=== PATIENT | female | born 1985 | race Caucasian/White ===

== ENCOUNTER 2020-05-04 09:08 | Outpatient (RCR) | payer BC, SELFPAY | END 2020-07-13 16:31 | disposition home or self-care (01) | LOC: ANHDMC 09:08 | PROVIDERS: Visit Provider Obstetrics & Gynecology | DX: O24.410 Gestational diabetes mellitus in pregnancy, diet controlled (principal); Z71.89 Other specified counseling; Z3A.00 Weeks of gestation of pregnancy not specified | CPT/HCPCS: G0108 ==

== ENCOUNTER 2020-05-11 09:52 | Observation (INO) | payer BC, MEDICAID, SELFPAY ==
[2020-05-11 10:15] VITALS: BMI 30.4
[2020-05-11 10:16] VITALS: BP 108/60; PULSE 102
[2020-05-11 10:31] VITALS: BP 104/55; PULSE 93
--- NOTE | 2020-05-11 11:12 | OBADM ---
This patient, Asia Wyman, admitted to the OB room OB Post 116 for observation. Patient/family oriented to hospital policies and general routines including ID bracelet, bed and alarms, visiting hours, pain management, procedures, bathroom and other care routines, personal items, smoking policy, room service/diet, and visiting hours. Patient/Family are encouraged to report perceived risks to care and to ask questions if they do not understand what they are told or what they should do.
--- NOTE | 2020-05-16 12:42 | PM.OBTRLD ---
OB - Triage/Final Diagnosis Visit Information Reason for evaluation: threatened labor
== END 2020-05-11 11:10 | disposition home or self-care (01) ==
PROVIDERS: Admitting Provider Obstetrics & Gynecology; PCP Nurse Practitioner Family; Visit Provider Obstetrics & Gynecology
DX: O47.9 False labor, unspecified (principal)
CPT/HCPCS: G0378; G0379

== ENCOUNTER 2020-06-15 11:49 | Observation (INO) | payer BC, MEDICAID, SELFPAY ==
[2020-06-15 12:23] LABS: Add Urine Microscopic? YES; Appearance Urine Cloudy (Clear); Bacteria Urine Trace /hpf; Bilirubin Urine Negative (Negative); Blood Urine Negative (Negative); Color Urine Yellow (Yellow); Glucose Urine UA Negative (Negative); Ketones Urine 2+ mg/dL (Negative); Leukocyte Esterase Ur 3+ LEU/UL (NEGATIVE); Mucus Urine Rare /lpf; Nitrate Urine Negative (Negative); Protein Urine 1+ mg/dL (Negative); Specific Grav Ur 1.029 (1.001-1.035); Squamous Epithelial Cell Urine Many /hpf (Few); Urobilinogen Urine Negative mg/dL (<2.0); WBC Urine 21-30 /hpf (0-3)
[2020-06-15 13:09] VITALS: BP 118/73; PULSE 77
[2020-06-15 13:16] VITALS: BP 95/54; PULSE 76
[2020-06-15 13:31] VITALS: BP 106/64; PULSE 70
--- NOTE | 2020-06-19 08:23 | PM.OBTRLD ---
OB - Triage/Final Diagnosis Evaluation Laboratory results: Laboratory Tests 06/15/20 12:11 Urine Color Yellow Urine Appearance Cloudy H Urine pH 5.0 Ur Specific [place] 1.029 Urine Protein 1+ H Urine Glucose (UA) Negative Urine Ketones 2+ H Ur Blood (Man) Negative Urine Nitrate Negative Urine Bilirubin Negative Urine Urobilinogen Negative Ur Leukocyte Esterase 3+ H Urine RBC 3-5 H Urine WBC 21-30 H Ur Squamous Epith Cells Many H Urine Bacteria Trace Urine Mucus Rare Final Diagnosis (1) Abdominal pain affecting : Code(s): O26.899 - Other specified related conditions, unspecified trimester; R10.9 - Unspecified abdominal pain Status: Acute
== END 2020-06-15 14:42 | disposition home or self-care (01) ==
PROVIDERS: Admitting Provider Obstetrics & Gynecology; PCP Nurse Practitioner Family; Visit Provider Obstetrics & Gynecology
DX: O26.899 Other specified pregnancy related conditions, unspecified trimester (principal); R10.9 Unspecified abdominal pain; Z3A.00 Weeks of gestation of pregnancy not specified
CPT/HCPCS: 81001; 87086; 87088; G0378; G0379

== ENCOUNTER 2020-06-18 10:33 | Observation (INO) | payer BC, MEDICAID, SELFPAY ==
--- NOTE | ~2020-06-18 | US_ITS ---
EXAMINATION: US OB BPP wo non-stress DATE: 06/18/2020 13:36 CDT INDICATION: Gestational diabetes TECHNIQUE: Real-time transabdominal obstetric ultrasound. FINDINGS: No prior studies for comparison. There is a single living fetus in vertex presentation. The placenta is anterior without placenta pre via. cardiac activity and movement is noted with a heart rate of 145 beats per minute. Biophysical profile: breathin of 2 movement: 2 of 2 tone: 2 of 2 Amniotic flud pocket: 2 of 2 Total score: 6 of 8 IMPRESSION: 1. Single living intrauterine in vertex presentation. 2: Total biophysical profile score of 6/8. Reviewed, dictated and finalized at location B.
[2020-06-18] MEDS: TERBUTALINE SULFATE 1 MG/ML VIAL (11:38)
--- NOTE | 2020-06-18 13:00 | OBADM ---
This patient, Asia Wyman, admitted to the OB room Labor/Delivery/Recovery 118 for observation. Patient/family oriented to hospital policies and general routines including ID bracelet, bed and alarms, visiting hours, pain management, procedures, bathroom and other care routines, personal items, smoking policy, room service/diet, and visiting hours. Patient/Family are encouraged to report perceived risks to care and to ask questions if they do not understand what they are told or what they should do.
[2020-06-18 13:46] VITALS: PULSE 106; O2SAT 100
[2020-06-18 13:49] VITALS: BP 107/67; PULSE 88
[2020-06-18 13:56] VITALS: PULSE 89; O2SAT 100
[2020-06-18 14:01] VITALS: BP 120/69; PULSE 104; PULSE 93; O2SAT 100
[2020-06-18 14:06] VITALS: PULSE 103; O2SAT 100
--- NOTE | 2020-06-23 08:57 | PM.OBTRLD ---
OB - Triage/Final Diagnosis Visit Information Reason for evaluation: threatened labor
== END 2020-06-18 14:10 | disposition home or self-care (01) ==
PROVIDERS: Admitting Provider Obstetrics & Gynecology; PCP Nurse Practitioner Family; Visit Provider Obstetrics & Gynecology
DX: O47.9 False labor, unspecified (principal); Z3A.00 Weeks of gestation of pregnancy not specified
CPT/HCPCS: 76819; 96372; G0378; G0379; J3105

== ENCOUNTER 2020-06-28 09:06 | Outpatient (RCR) | payer BC, MEDICAID, SELFPAY ==
[2020-05-21 15:40] VITALS: BP 106/65; PULSE 82
[2020-05-24 15:18] VITALS: PULSE 82
[2020-05-28 14:59] VITALS: BP 113/73; PULSE 80
[2020-05-31 13:55] VITALS: BP 108/69; PULSE 82
[2020-06-04 15:19] VITALS: BP 114/72; PULSE 89
[2020-06-11 13:28] VITALS: BP 111/64; PULSE 70
[2020-06-14 14:56] VITALS: BP 116/66; PULSE 78
--- NOTE | 2020-06-18 11:30 | PC.NURSE ---
called, informed pt came in for her NST and was c/o mulu. Pt is having contractions every 1-4 minutes,crying with back pain and was unable to tolerate a SVE. Pt states she has never been able to tolerate exams. Orders received to PO hydrate and give up to 3 doses of terbutaline as needed for contractions.
[2020-06-21 11:01] VITALS: BP 122/81; PULSE 83
[2020-06-25 10:46] VITALS: BP 112/70; PULSE 77
--- NOTE | ~2020-06-28 | US_ITS ---
EXAMINATION: US OB BPP wo non-stress DATE: 06/25/2020 10:18 INDICATION: Maternal gestational diabetes during third trimester. Assess biophysical profile. TECHNIQUE: Real-time ultrasound of the pelvis was performed. The interpreting radiologist was not pre sent for the study. COMPARISON: None. FINDINGS: There is a single living fetus in vertex presentation. The placenta is anterior. heart rate is 135 beats per minute (bpm). The amniotic fluid index is subjectively normal. Biophysical profile performed by the technologist: breathing (30 sec sustained breathing in 30 minutes): 2 out of 2 movement (3 gross body movements in 30 minutes: 2 out of 2 tone (one episode of ecnmvre-ywcrxkhlp-ttwcwxi limb movement): 2 out of 2 Amniotic fluid pocket (2 cm): 2 out of 2 Total score: 8 out of 8 IMPRESSION: 1. Single living fetus in vertex presentation with heart rate of 135 bpm. 2. Biophysical profile 8 out of 8. Reviewed, dictated and finalized at location B. IMPRESSION: 1. Single living fetus in vertex presentation with heart rate of 135 bpm . 2. Biophysical profile 8 out of 8.
--- NOTE | ~2020-06-28 | US_ITS ---
EXAMINATION: US OB BPP wo non-stress DATE: 05/28/2020 15:20 INDICATION: Gestational diabetes. Third trimester. TECHNIQUE: Real-time pelvic ultrasound was performed. COMPARISON: Ultrasound 05/21/2020 FINDINGS: There is a single living fetus in vertex presentation. The placenta is anterior. heart rate is 152 beats per minute (bpm). Biophysical profile performed by the technologist: breathing (30 sec sustained breathing in 30 minutes): 2 out of 2 movement (3 gross body movements in 30 minutes): 2 out of 2 tone (one episode of odibdxd-jxxbhwook-reopnvi limb movement): 2 out of 2 Amniotic fluid pocket (2 cm): 2 out of 2 Total score: 8 out of 8 IMPRESSION: 1. Single living fetus in vertex presentation. 2. Biophysical profile 8 out of 8. Reviewed, dictated and finalized at location A.
--- NOTE | ~2020-06-28 | US_ITS ---
EXAMINATION: US OB follow up w BPP DATE: 06/11/2020 14:23 INDICATION: Estimated weight and obtain biophysical profile. Third trimester . TECHNIQUE: Real-time pelvic ultrasound was performed. The interpreting radiologist was not present fo r the study. COMPARISON: None. FINDINGS: There is a single living fetus in vertex presentation. The placenta is anterior. heart rate is 144 beats per minute (bpm). The following biometric data were obtained: Head circumference: 31.9 cm -> 35 weeks 6 days Abdominal circumference: 31.8 cm -> 35 weeks 5 days Femur length: 6.9 cm -> 35 weeks 3 days These measurements are concordant. Head circumference to abdominal circumference ratio: 1.00 (normal range 0.93-1.09). Estimated weight: 2732 g (+/-) 410 g, 6lbs 0oz (+/-) 14oz Biophysical profile performed by the technologist: breathing (30 sec sustained breathing in 30 minutes): 2 out of 2 movement (3 gross body movements in 30 minutes): 2 out of 2 tone (one episode of bqyymoe-uhlrjqgxp-khwqgdi limb movement): 2 out of 2 Amniotic fluid pocket (2 cm): 2 out of 2 Total score: 8 out of 8 IMPRESSION: 1. Single living fetus in vertex presentation. 2. Biophysical profile 8 out of 8. 3. Estimated weight is 55th percentile by Hadlock criteria when 07/13/2020 is used as the estim ated date of delivery (VIÁN). Please correlate with clinical information or earlier ultrasounds for mo st accurate IVÁN. Reviewed, dictated and finalized at location B. IMPRESSION: 1. Single living fetus in vertex presentation. 2. Biophysical profile 8 out of 8. 3. Estimated weight is 55th percentile by Hadlock criteria when 0 is used as the estimated date of delivery (IVÁN). Please correlate with clinic al information or earlier ultrasounds for most accurate IVÁN.
--- NOTE | ~2020-06-28 | US_ITS ---
EXAMINATION: US OB follow up w BPP DATE: 05/21/2020 15:29 INDICATION: Gestational diabetes TECHNIQUE: Real-time ultrasound of the pelvis was performed. The interpreting radiologist was not pre sent for the study. COMPARISON: None. FINDINGS: There is a single living fetus in vertex presentation. The placenta is anterior. cardiac activ ity and movement are noted. heart rate is 1:30 beats per minute (bpm). The amniotic fluid index is 17.3 cm, which is normal. The following biometric data were obtained: BPD: 8.3 cm corresponds to gestational age 33 weeks 3 day(s). Head circumference: 30.3 cm corresponds to gestational age 33 weeks 5 day(s). Abdominal circumference: 29.9 cm corresponds to gestational age 33 weeks 6 day(s). Femur length: 6.3 cm corresponds to gestational age 32 weeks 3 day(s). Head circumference to abdominal circumference ratio: 1.01 (mean 0.95-1.11). Estimated weight: 2190 g plus or minus 328 g. Biophysical profile performed by the technologist: breathing (30 sec sustained breathing in 30 minutes): 2 out of 2 movement (3 gross body movements in 30 minutes: 2 out of 2 tone (one episode of fdpmrpp-keygaobsb-dznkhgo limb movement): 2 out of 2 Amniotic fluid pocket (2 cm): 2 out of 2 Total score: 8 out of 8 IMPRESSION: 1. Single living fetus in vertex presentation with heart rate of 130 bpm. 2. Normal placenta. 3. Biophysical profile 8 out of 8. 4. Gestational age by ultrasound of 33 weeks 3 day(s) with ultrasound estimated date of delivery (IVÁN ) of 07/06/2020. Reviewed, dictated and finalized at location A. IMPRESSION: 1. Single living fetus in vertex presentation with heart rate of 130 bpm. 2. Normal placenta. 3. Biophysical profile 8 out of 8. 4. Gestational age by ultrasound of 33 weeks 3 day(s) with ultrasound estimated date of delivery (IVÁN) of 07/06/2020.
--- NOTE | ~2020-06-28 | US_ITS ---
EXAMINATION: US OB BPP wo non-stress EXAM DATE: 06/04/2020 15:41 INDICATION: Gestational diabetes. 3rd trimester. TECHNIQUE: Pelvic obstetrical transabdominal sonogram was performed by a technologist. There are mu ltiple grayscale and Doppler images available for interpretation. There are no earlier studies of th is gestation for comparison. FINDINGS: There is a single fetus identified in vertex presentation with a heart rate of 137 beats pe r minute. The placenta is located in the anterior position. There is no sonographic evidence of retr oplacental hemorrhage identified. BIOPHYSICAL PROFILE (performed by the technologist) breathing (30 sec sustained breathing in 30 minutes): 2 out of 2 movement (3 gross body movements in 30 minutes): 2 out of 2 tone (one episode of ftaruhz-pwcimvzsk-fpsyxoy limb movement): 2 out of 2 Amniotic fluid pocket (2 cm): 2 out of 2 Total score: 8 out of 8 IMPRESSION: 1. Single fetus with heart rate of 137 bpm. 2. Normal biophysical profile score of 8 out of 8. Reviewed, dictated and finalized at location B.
[2020-06-28 09:37] VITALS: BP 108/75; PULSE 71
== END 2020-07-02 11:25 | disposition home or self-care (01) ==
LOC: ANHOBOP 09:06
PROVIDERS: PCP Nurse Practitioner Family; Visit Provider Obstetrics & Gynecology
DX: O24.419 Gestational diabetes mellitus in pregnancy, unspecified control (principal); Z3A.32 32 weeks gestation of pregnancy; Z3A.33 33 weeks gestation of pregnancy; Z3A.34 34 weeks gestation of pregnancy; Z3A.35 35 weeks gestation of pregnancy; Z3A.36 36 weeks gestation of pregnancy; Z3A.37 37 weeks gestation of pregnancy
CPT/HCPCS: 59025; 76816; 76819; A9270; J2274; J3010; J3105; J7121

== ENCOUNTER 2020-06-28 19:05 | Observation (INO) | payer BC, MEDICAID, SELFPAY ==
[2020-06-28 19:28] VITALS: BP 121/89; PULSE 84
[2020-06-28 19:32] VITALS: BP 122/78; PULSE 82
[2020-06-28 19:40] VITALS: BP 117/79; PULSE 74
--- NOTE | 2020-07-02 16:43 | PM.OBTRLD ---
OB - Triage/Final Diagnosis Visit Information Reason for evaluation: threatened labor
--- NOTE | 2020-07-02 16:44 | PM.OBPNVD ---
OB - PN: Subj Subjective Date/time seen: 07/02/20 16:44 Feeling poorly today and mild anemia persists. Discussed and will proceed with 2 units packed red blood cells and cancel today discharge. OB - PN A/P Time Spent With Patient Time: Total time spent is greater than 50% in coordination of care (as documented) at patient's floor/unit and/or counseling patient:
== END 2020-06-28 20:05 | disposition home or self-care (01) ==
PROVIDERS: Admitting Provider Obstetrics & Gynecology; PCP Nurse Practitioner Family; Visit Provider Obstetrics & Gynecology
DX: O99.013 Anemia complicating pregnancy, third trimester (principal); D64.9 Anemia, unspecified; O47.03 False labor before 37 completed weeks of gestation, third trimester; Z3A.37 37 weeks gestation of pregnancy
CPT/HCPCS: G0378; G0379

== ENCOUNTER 2020-06-30 05:28 | Inpatient (IN) | payer BC, MEDICAID, SELFPAY ==
[2020-06-30] VITALS (59 sets, daily range): BP systolic 81–132; BP diastolic 40–93; PULSE 60–104; RESP 16–20; TEMP 36.4–37.1; O2SAT 75–100; BMI 30.8
--- NOTE | ~2020-06-30 | XR_ITS ---
EXAMINATION: XR cystogram DATE: 06/30/2020 11:55 INDICATION: Hematuria post section TECHNIQUE: Water-soluble contrast was gravity-infused through the patient's Ibanez catheter. Multiple fluoroscopic images were obtained. Fluoroscopy exposure time was 1.0 minutes. The DAP for this proced ure was 18.185 Gycm2. COMPARISON: None. FINDINGS: Bladder contour is normal. No contrast extravasation is identified from the bladder. IMPRESSION: 1. No evidence of contrast extravasation from the bladder. Reviewed, dictated and finalized at location A.
[2020-06-30 06:40] LABS: Basophils Percent Auto 0.5 % (0.2-1.2); Eosinophils Absolute Auto 0.1 K/mm3 (0-0.3); Eosinophils Percent Auto 0.9 % (0-4.4); Hemoglobin 11.7 g/dL (12.0-15.0); Immature Granulocyte Absolute 0.02 K/mm3 (0.00-0.031); Immature Granulocyte Percent A 0.4 % (0-0.5); Lymphocytes Absolute Auto 1.13 K/mm3 (0.9-3.2); Lymphocytes Percent Auto 19.9 % (18.3-44.2); Mean Corpuscular HGB Conc 34.4 g/dl (32-36); Mean Corpuscular Hemoglobin 30.9 pg (26-34); Mean Corpuscular Volume 89.7 fl (80-100); Mean Platelet Volume 11.3 fl (7.4-10.4); Monocytes Absolute Auto 0.4 K/mm3 (0.1-0.6); Monocytes Percent Auto 7.6 % (2.6-8.5); Neutrophils Percent Auto 70.7 % (45.5-73.1); Platelet Count Result 146 k/mm3 (150-375); Red Blood Count 3.79 M/mm3 (4.2-5.4); Red Cell Distribution Width 13.7 % (11.5-14.5); White Blood Count 5.7 K/mm3 (4.5-10.0)
[2020-06-30] MEDS: LACTATED RINGERS 1,000 ML 125 ML IV CONT ×2 (06:45→08:30)
--- NOTE | 2020-06-30 06:45 | P.PNAN_ITS ---
Anes - Eval Pre Procedure Procedure: Operation Date: 07/06/20 07:30 Proposed Procedures p Repeat Section with Bilateral Tubal Ligation - Mark Brito MD Date/Time: 06/30/20 06:45 Surgeon: Mark Brito Preop Diagnosis: previous c section Pre Op Diagnosis: SROM Patient Data Age: 34 Gender: F Height: Weight: Last Vital Signs Pulse 83 06/30/20 06:00 BP 118/81 06/30/20 06:00 Allergies Allergy/AdvReac Type Severity Reaction Status Date / Time No Known Allergies Allergy Verified 06/14/20 14:34 Home Medications Medication Instructions Recorded Confirmed Type PNV cmb#95-ferrous fumarate-FA 1 tablet PO DAILY 05/21/20 06/21/20 History [] nifedipine [Procardia] 10 mg PO Q6H PRN 05/21/20 06/21/20 History venlafaxine [Effexor XR] 75 mg PO DAILY 05/21/20 06/21/20 History glyburide 5 mg PO HS 06/14/20 06/21/20 History Laboratory Tests 06/30/20 06/30/20 06:35 06:35 WBC 5.7 K/mm3 K/mm3 (4.5-10.0) RBC 3.79 M/mm3 L M/mm3 (4.2-5.4) Hgb 11.7 g/dL L g/dL (12.0-15.0) Hct 34.0 % L % (37.0-47.0) MCV 89.7 fl fl (80-100) MCH 30.9 pg pg (26-34) MCHC 34.4 g/dl g/dl (32-36) RDW 13.7 % % (11.5-14.5) Plt Count 146 k/mm3 L k/mm3 (150-375) MPV 11.3 fl H fl (7.4-10.4) Immature Gran % (Auto) 0.4 % % (0-0.5) Neut % (Auto) 70.7 % % (45.5-73.1) Lymph % (Auto) 19.9 % % (18.3-44.2) [place] % (Auto) 7.6 % % (2.6-8.5) Eos % (Auto) 0.9 % % (0-4.4) Baso % (Auto) 0.5 % % (0.2-1.2) Lymph # (Auto) 1.13 K/mm3 K/mm3 (0.9-3.2) [place] # (Auto) 0.4 K/mm3 K/mm3 (0.1-0.6) Eos # (Auto) 0.1 K/mm3 K/mm3 (0-0.3) Baso # (Auto) 0.0 K/mm3 K/mm3 (0.0-0.1) Abs Immat Gran (auto) 0.02 K/mm3 K/mm3 (0.00-0.031) Absolute Neuts (auto) 4.0 K/mm3 K/mm3 (1.3-6.7) Absolute Nucleated RBC 0.0 K/mm3 K/mm3 (0.0-0.012) Nucleated RBC % 0.0 % % (0.0-0.2) RPR Pending Patient hx anesthesia problems: none Family hx anesthesia problems: none [facility] Family History Family History (Updated 06/14/20 @ 14:55 by Mariam Gutierrez RN) Son Asthma Mother Asthma Father Heart disease Social History Social History Substance use: never Gender identity (if verbalized by the patient): Female Spiritual care concerns: No Exam Day of Procedure 06/30/20 06:45
--- NOTE | 2020-06-30 06:54 | WPDHPUPDATE1 ---
History and Physical Update Update Date/Time: 06/30/20 06:54 History and Physical has been reviewed, including an updated exam of the patient. There are NO changes in the patient's condition. Risks, benefits, and alternatives have been discussed and questions answered. Patient agrees to proceed with procedure.
--- NOTE | 2020-06-30 06:54 | WPDOBADMIT ---
Obstetrics - Admit Note Admission Note: record reviewed. No pertinent additions to the history and/or any subsequent changes in the physical findings that are not consistent with the expected course of the were found. Additions to the history and/or subsequent changes in the physical findings follow. None.
[2020-06-30] MEDS: ceFAZolin 2 GM/D5W 50 ML 2 GM/50 ML BAG IVPB (07:22)
--- NOTE | 2020-06-30 08:20 | P.PCNOB_ITS ---
OB - Delivery Note Procedure Procedure: Procedures Operation Date: 06/30/20 07:00 <No data on this case meets the specified criteria> Operation Date: 07/06/20 07:30 <No data on this case meets the specified criteria> events: Gestational Diabetes and Premature Rupture of Membrane Route of delivery: (With bilateral tubal ligation) Specimen: Yes ( 1. Placenta for gestational diabetes 2. Bilateral tubal segments for tubal) Estimated blood loss (mL): 600 Anesthesia type: Spinal Disposition: PACU Narrative: Patient prepped and draped in usual manner as procedure after spinal anesthesia was induced. Pfannenstiel incision was made which was carried down to the fascia. Fascial incision was extended bilaterally the length of the skin incision. Superiorly and inferiorly the rectus muscles were then dissected. Ut erine adhesion to the anterior abdominal wall was noted and this was sharply and bluntly taken down to free up the anterior portion of the uterus. At this point the bladder flap was developed without difficulty and the uterus was scored with clear fluid noted. This incision was extended the length of the lower segment and the vertex was delivered without difficulty. The rest of baby was delivered cord clamped cut and placenta was removed manually. Uterus was exteriorized cleared of membranes and clots and closed using 0 Monocryl in a running interlocking manner to approximate the uterine incision with good hemostasis and approximation noted. Bilaterally the tubes were then grasped with Dorina clamps doubly ligated and these segment of tube was removed. Both tubal stumps were hemostatic. Attention was then placed to the anterior portion of the uterus which was oozing due to the adhesions which had been taken down previously. This was rendered hemostatic by using a 0 Monocryl running interlocking manner to approximate these edges. Gelfoam was also placed over this area to help with hemostasis. Uterus was returned to the abdomen tubal segments were noted to be intact and the fascia was then closed using 0 Vicryl in a running manner from the left edge to the midline in the right edge to the midline. Subcutaneous tissue was approximately 0 plain suture and skin cecilia were used to approximate the edges. This point seizure was considered terminated. [place] Baby Weeks of gestation at delivery: 38 gender: Male Weight (pounds): 7 Weight (ounces): 12 score one minute: 9 score five minutes: 9
--- NOTE | 2020-06-30 09:37 | LDADM ---
This patient, Asia Wyman, was admitted to Labor/Delivery/Recovery 120 on 06/30/20 at 05:28. Plans for labor, pain management and were discussed with patient. Patient/family oriented to hospital policies and general routines including ID bracelet, bed and alarms, visiting hours, pain management, procedures, bathroom and other care routines, personal items, smoking policy, room service/diet and guest tray routines, security routines, and visiting hours. Patient/Family are encouraged to report perceived risks to care and to ask questions if they do not understand what they are told or what they should do. See OBIX for further documentation.
[2020-06-30] MEDS: fentaNYL CITRATE INJ (*CRX) 100 MCG/2 ML VIAL 25 MCG IV PUSH ×5 (10:26→11:55)
[2020-06-30] MEDS: OXYTOCIN 30 UNITS/NS 500 ML 30 UNITS/500 ML BAG 125 UNITS IV CONT (10:26)
[2020-06-30 10:51] LABS: Glucose Point of Care 68 (65-105)
--- NOTE | 2020-06-30 11:06 | SUR.PHASEI ---
Dr Brito notified of blood in catheter and not clearing over time. Orders received.
--- NOTE | 2020-06-30 12:02 | PC.NURSE ---
PT arrived on unit via stretcher accompanied by both fob and and taken to room 291. PT oriented to room and surrounding area. PT Introductions made and plan of care discussed per post op c section, pain management, daily care activities and breast feeding. Welcome packet reviewed and discussed. PT verbalized understanding of such care.
[2020-06-30] MEDS: SIMETHICONE 80 MG TAB.CHEW PO ×2 (12:33→16:21)
[2020-06-30] MEDS: IBUPROFEN 600 MG TABLET PO ×2 (12:34→19:17)
[2020-06-30] MEDS: HYDROcodone/acetaminophen (*CRX) 10-325 MG TABLET 1 TAB PO ×4 (12:34→21:54)
[2020-06-30] MEDS: LANOLIN (LANSINOH) 7.5 GM CREAM 1 APPLIC TOPICAL (12:35)
[2020-06-30] MEDS: DEXTROSE 5%/0.45% SOD CHL 1,000 ML 125 ML IV CONT (14:50)
[2020-06-30] MEDS: VENLAFAXINE HCL XR 75 MG CAP.ER.24H PO (21:54)
[2020-06-30] MEDS: KCL 20 MEQ/D5/0.45% SOD CHL 1,000 ML 125 ML IV CONT (21:55)
[2020-07-01] MEDS: HYDROcodone/acetaminophen (*CRX) 10-325 MG TABLET 1 TAB PO ×5 (00:44→20:38)
--- NOTE | 2020-07-01 01:09 | PC.NURSE ---
Daylight Savings Time For Daylight Savings Time Ending in the Fall - Clocks are moved back. For Daylight Savings Time Beginning in the Spring - Clocks are moved ahead. For [facility], the time of change occurs at 0200 hrs. Time is taken from the dining room server. This entry on the patient's chart recognizes the change in time reflected during documentation. Example: 2 entries for vital signs may be charted for 0200 hrs.
[2020-07-01] MEDS: IBUPROFEN 600 MG TABLET PO ×4 (02:48→23:35)
[2020-07-01] MEDS: SIMETHICONE 80 MG TAB.CHEW PO ×6 (02:48→23:38)
[2020-07-01 03:00] VITALS: BP 99/58; PULSE 93; RESP 16; TEMP 36.5; O2SAT 97
[2020-07-01 05:59] LABS: Basophils Percent Auto 0.2 % (0.2-1.2); Eosinophils Absolute Auto 0.1 K/mm3 (0-0.3); Eosinophils Percent Auto 1.2 % (0-4.4); Hematocrit 24.4 % (37.0-47.0); Hemoglobin 8.2 g/dL (12.0-15.0); Immature Granulocyte Absolute 0.04 K/mm3 (0.00-0.031); Immature Granulocyte Percent A 0.5 % (0-0.5); Lymphocytes Absolute Auto 0.85 K/mm3 (0.9-3.2); Lymphocytes Percent Auto 9.8 % (18.3-44.2); Mean Corpuscular HGB Conc 33.6 g/dl (32-36); Mean Corpuscular Hemoglobin 30.7 pg (26-34); Mean Corpuscular Volume 91.4 fl (80-100); Mean Platelet Volume 10.3 fl (7.4-10.4); Monocytes Absolute Auto 0.6 K/mm3 (0.1-0.6); Monocytes Percent Auto 6.5 % (2.6-8.5); Neutrophils Absolute Auto 7.1 K/mm3 (1.3-6.7); Neutrophils Percent Auto 81.8 % (45.5-73.1); Platelet Count Result 130 k/mm3 (150-375); Red Blood Count 2.67 M/mm3 (4.2-5.4); Red Cell Distribution Width 14.2 % (11.5-14.5); White Blood Count 8.7 K/mm3 (4.5-10.0)
--- NOTE | 2020-07-01 08:00 | PC.NURSE ---
PT introductions made and plan of care discussed per post op c section, pain management, breast feeding, daily care activities . PT verbalized understanding of such care.
[2020-07-01] MEDS: POLYSACCHARIDE IRON COMPLEX 150 MG CAPSULE PO ×2 (09:23→17:18)
[2020-07-01] MEDS: DOCUSATE SODIUM 100 MG CAPSULE PO ×2 (09:23→17:18)
[2020-07-01] MEDS: MULTIVIT/MIN/PREN/FOL AC/IRON TABLET 1 TAB PO (09:23)
[2020-07-01 09:30] VITALS: BP 110/63; PULSE 92; RESP 18; TEMP 37.2; O2SAT 99
--- NOTE | 2020-07-01 09:49 | P.PNOB_ITS ---
OB - PN: Subj Subjective Date/time seen: 07/01/20 09:49Regular diet tolerated this morning. Catheter is still in and draining clear fluid therefore she has not been out. Pain reasonably well controlled with oral pain medication. OB - PN: Obj Data Labs CBC & Chem 7: 07/01/20 05:50 Labs: Laboratory Results - last 24 hr 06/30/20 07/01/20 07:00 05:50 WBC 8.7 RBC 2.67 L Hgb 8.2 L D Hct 24.4 L MCV 91.4 MCH 30.7 MCHC 33.6 RDW 14.2 Plt Count 130 L MPV 10.3 Immature Gran % (Auto) 0.5 Neut % (Auto) 81.8 H Lymph % (Auto) 9.8 L [place] % (Auto) 6.5 Eos % (Auto) 1.2 Baso % (Auto) 0.2 Lymph # (Auto) 0.85 L [place] # (Auto) 0.6 Eos # (Auto) 0.1 Baso # (Auto) 0.0 Abs Immat Gran (auto) 0.04 H Absolute Neuts (auto) 7.1 H Absolute Nucleated RBC 0.0 Nucleated RBC % 0.0 POC Capillary Glucose 68 Imaging Radiologist's impression: Impressions Cystogram 06/30/20 12:15 IMPRESSION: 1. No evidence of contrast extravasation from the bladder. OB - PN A/P Plan day: 1 Plan: routine care Comments: 1. Hemoglobin of 8 is noted as compared to 11 on admission. Also platelet count of [id number]. We will recheck both of these tomorrow prior to discharge. 2. Discussed with patient regarding hematuria after delivery and negative cystogram. Urine has cleared and we will remove Ibanez this morning. 3. If labs and clinical condition warrant she desires to be discharged tomorrow morning we will do so if able. Time Spent With Patient Time: Total time spent is greater than 50% in coordination of care (as documented) at patient's floor/unit and/or counseling patient: Time with patient: 15 - 25 minutes Exam Narrative: Exam Narrative: Bandage clear positive bowel sounds no inappropriate tenderness
--- NOTE | 2020-07-01 09:53 | P.DS_ITS ---
DS: Admitting Diagnosis Admitting Diagnosis Admitting Diagnosis: SROM OB - DS: Summary OB Procedures : None OB Procedures Intrapartum: and Tubal ligation OB Procedures: : None Peripartum Data Procedures: Procedures Operation Date: 06/30/20 07:00 Actual Procedures Side Surgeon p Section with bilateral tubal. Mark Brito MD Operation Date: 07/06/20 07:30 <No data on this case meets the specified criteria> Time Spent with Patient Time attestation: Total time spent providing and/or coordinating discharge services: DS: Data Data Completed and Pending Pending studies at discharge: Pending at discharge 06/30/20 08:47 Surgical [PTH] Routine Labs on day of discharge: Labs from last 24 hours 07/01/20 05:50 WBC 8.7 RBC 2.67 L Hgb 8.2 L D Hct 24.4 L MCV 91.4 MCH 30.7 MCHC 33.6 RDW 14.2 Plt Count 130 L MPV 10.3 Immature Gran % (Auto) 0.5 Neut % (Auto) 81.8 H Lymph % (Auto) 9.8 L [place] % (Auto) 6.5 Eos % (Auto) 1.2 Baso % (Auto) 0.2 Lymph # (Auto) 0.85 L [place] # (Auto) 0.6 Eos # (Auto) 0.1 Baso # (Auto) 0.0 Abs Immat Gran (auto) 0.04 H Absolute Neuts (auto) 7.1 H Absolute Nucleated RBC 0.0 Nucleated RBC % 0.0 Discharge Plan Discharge Discharging Clinician: Mark Brito Anticipated Discharge Date/Time: 07/02/20 09:53 Patient Disposition: Home, Self-Care Activity: as tolerated Diet: as tolerated Wound Care Instructions: incision open to air Discharge Instructions: office thursday for staple removal. Patient Instructions: Antibiotic Form Stand Alone Forms: General Discharge Information Follow-up/Referrals: Mark Brito MD [Physician] - 3 Weeks Discharge Medications: New hydrocodone-acetaminophen 5-325 mg Tablet 1 tab PO Q3H PRN (Reason: Moderate Pain (4-6)) Qty: 30 RF: 0 ibuprofen 600 mg Tablet 600 mg PO Q6H PRN (Reason: Cramping) Qty: 30 RF: 0 Continued venlafaxine [Effexor XR] 75 mg Capsule,Extended Release 24hr 75 mg PO DAILY RF: 0 PNV cmb#95-ferrous fumarate-FA [] 28 mg iron- 800 mcg Tablet 1 tablet PO DAILY RF: 0 Discontinued nifedipine [Procardia] 10 mg Capsule 10 mg PO Q6H PRN (Reason: Cramps) RF: 0 glyburide 5 mg Tablet 5 mg PO HS RF: 0 Date of admission: 06/30/20 05:28 Primary Care Provider: NarinderJessica Admitting Provider: Mark Brito Attending physician on admission: Mark Brito Condition: Stable
[2020-07-01] MEDS: HYDROcodone/acetaminophen (*CRX) 5-325 MG TABLET 1 TAB PO ×3 (12:36→23:37)
[2020-07-01 14:00] VITALS: BP 125/70; PULSE 101; RESP 18; TEMP 37.7; O2SAT 98
--- NOTE | 2020-07-01 14:43 | WPDANLDPN2 ---
Anes-Prog Note L&D Date/Time: 07/01/20 14:43 Comfortable throughout: section Neuraxial method: spinal Epidural/Spinal procedure site: clean & non-tender Neuro status: Neuro function grossly intact. Cardiovascular status: normal Respiratory status: normal Airway patency: baseline Mental status: baseline Post-Op hydration status: normal Vital Signs: Last Vital Signs Temp 37.7 C H 07/01/20 14:00 Pulse 101 H 07/01/20 14:00 Resp 18 07/01/20 14:00 BP 125/70 07/01/20 14:00 Pulse Ox 98 07/01/20 14:00 Pain score (VAS): 0/0 I/O: Intake & Output 07/01/20 07/01/20 07/01/20 00:59 07:59 15:59 Intake Total 1100 Output Total 1050 Balance 50 Post-procedural complaints: none Patient feedback: Patient satisfied with anesthetic care.
--- NOTE | 2020-07-01 14:44 | WPDANLDNPN2 ---
Anes-Prog Note L&D-Neuraxial Date/Time: 07/01/20 14:44 Neuraxial medications: intrathecal PF morphine Opiod-related complaints: none Patient feedback: Patient satisfied with post-operative pain management.
[2020-07-01 20:00] VITALS: BP 121/54; PULSE 97; RESP 18; TEMP 37; O2SAT 98
[2020-07-01] MEDS: VENLAFAXINE HCL XR 75 MG CAP.ER.24H PO (20:38)
[2020-07-02] VITALS (16 sets, daily range): BP systolic 109–135; BP diastolic 62–78; PULSE 84–101; RESP 16–20; TEMP 36.6–38.1; O2SAT 97–100
[2020-07-02] MEDS: SIMETHICONE 80 MG TAB.CHEW PO ×6 (02:22→21:38)
[2020-07-02] MEDS: IBUPROFEN 600 MG TABLET PO ×3 (05:28→21:39)
[2020-07-02] MEDS: HYDROcodone/acetaminophen (*CRX) 5-325 MG TABLET 1 TAB PO ×5 (05:28→21:39)
[2020-07-02 05:52] LABS: Hematocrit 24.8 % (37.0-47.0); Mean Corpuscular HGB Conc 32.3 g/dl (32-36); Mean Corpuscular Hemoglobin 30.3 pg (26-34); Mean Corpuscular Volume 93.9 fl (80-100); Platelet Count Result 166 k/mm3 (150-375); Red Blood Count 2.64 M/mm3 (4.2-5.4); Red Cell Distribution Width 14.1 % (11.5-14.5); White Blood Count 8.4 K/mm3 (4.5-10.0)
[2020-07-02] MEDS: DOCUSATE SODIUM 100 MG CAPSULE PO ×2 (08:09→15:15)
[2020-07-02] MEDS: POLYSACCHARIDE IRON COMPLEX 150 MG CAPSULE PO ×2 (08:09→15:15)
[2020-07-02] MEDS: MULTIVIT/MIN/PREN/FOL AC/IRON TABLET 1 TAB PO (08:09)
[2020-07-02 09:57] LABS: Rapid Plasma Reagin Non-Reactive (NonReactive)
[2020-07-02] MEDS: SODIUM CHLORIDE 0.9% IV 250 ML 30 ML IV CONT (11:12)
--- NOTE | 2020-07-02 12:15 | PC.NURSE ---
Consulted with patient, mother reports infant will eagerly latch most feedings. Discussed and the 37 week , establishing may have its own unique set of circumstances due to their immaturity. infants may be less alert, have less stamina and may have issues with latch, suck and swallow. With the possible inability to have a vigorous suck swallow, infants may not be adequately stimulating mother and/or able to have adequate milk transfer. Pumping should be considered for additional stimulation and to offer EBM as part of supplement if needed. Discussed large EBM and possible delay of milk supply. Mother reports she has been supplementing and will continue as needed. Reviewed infant feeding cues, frequencies, duration of feedings, feeding elimination flow sheet, and signs of adequate intake. Demonstrated stimulation techniques to wake infant for feeding. Assisted with infant to breast. Reviewed positioning/alignment in cross cradle, holding breast in U hold and guided asymmetrical latch on. Discussed rational for each. was able to latch correctly. Infant nursed eagerly, with steady draws and frequent swallowing noted. Reviewed signs of a correct latch, effective nursing and suck swallow ratio. Infant was able to maintain latch without discomfort to mother. released latch, mother was able to independently latch correctly. Nipple care reviewed. Suggested mother stimulate while feeding to keep awake and nursing effectively for increased intake and to assist with maintaining deep latch. Instructed mother to call out for RN assistance if she is unable to latch infant for feeding or she has discomfort with nursing. Instructed feeding should be initiated three hours from start of last feeding or if feeding cues are noted before. Mother voiced understanding of information shared.
[2020-07-02] MEDS: ACETAMINOPHEN 325 MG TABLET 650 MG PO (15:14)
[2020-07-02] MEDS: VENLAFAXINE HCL XR 75 MG CAP.ER.24H PO (21:38)
[2020-07-03] MEDS: HYDROcodone/acetaminophen (*CRX) 5-325 MG TABLET 1 TAB PO ×2 (04:02→08:32)
[2020-07-03] MEDS: SIMETHICONE 80 MG TAB.CHEW PO ×3 (04:02→10:49)
[2020-07-03] MEDS: IBUPROFEN 600 MG TABLET PO ×2 (04:03→10:49)
[2020-07-03 05:28] LABS: Hemoglobin 9.7 g/dL (12.0-15.0); Mean Corpuscular HGB Conc 34.6 g/dl (32-36); Mean Corpuscular Hemoglobin 30.8 pg (26-34); Mean Corpuscular Volume 88.9 fl (80-100); Platelet Count Result 183 k/mm3 (150-375); Red Blood Count 3.15 M/mm3 (4.2-5.4); Red Cell Distribution Width 13.8 % (11.5-14.5); White Blood Count 8.1 K/mm3 (4.5-10.0)
[2020-07-03 07:25] VITALS: BP 131/75; PULSE 77; RESP 18; TEMP 36.9; O2SAT 98
[2020-07-03] MEDS: DOCUSATE SODIUM 100 MG CAPSULE PO (08:30)
[2020-07-03] MEDS: POLYSACCHARIDE IRON COMPLEX 150 MG CAPSULE PO (08:31)
--- NOTE | 2020-07-21 17:14 | PM.IMHP ---
H&P: HPI History of Present Illness Date/Time: 07/21/20 17:14 Chief complaint: SROM Narrative: Asia Wyman is a 34 year old female 3 para 2001 female presents with ruptured membranes at 38 weeks. Prior section x2. Also desires tubal ligation. Review of Systems Review of Systems: All systems reviewed & are unremarkable except as noted in HPI and below PMFSH Family History Family History Son Asthma Mother Asthma Father Heart disease Social History Social History Smoking status: Never smoker Substance use: never Gender identity (if verbalized by the patient): Female Spiritual care concerns: No Meds Home Medications and Allergies Home Medications Medication Instructions Recorded Confirmed Type PNV cmb#95-ferrous fumarate-FA 1 tablet PO DAILY 05/21/20 06/30/20 History [] venlafaxine [Effexor XR] 75 mg PO DAILY 05/21/20 06/30/20 History hydrocodone-acetaminophen 1 tab PO Q3H PRN #30 tablet 07/01/20 Rx ibuprofen 600 mg PO Q6H PRN #30 tablet 07/01/20 Rx Allergies Allergy/AdvReac Type Severity Reaction Status Date / Time No Known Allergies Allergy Verified 06/14/20 14:34 Exam Const: General: cooperative and healthy appearing Resp: Effort & Inspection: normal respiratory effort GI: Inspection: normal to inspection Other: Fundal height 38cm heart tones 140 : External Female Exam: normal external appearance Assessment and Plan Assessment and plan (1) Intrauterine : Code(s): Z34.90 - Encounter for supervision of normal , unspecified, unspecified trimester Status: Acute (2) Spontaneous rupture of membranes: Status: Acute Additional Plan Proceed with repeat low transverse section and tubal ligation.
== END 2020-07-03 11:15 | disposition home or self-care (01) | DRG 785 ==
LOC: ANHLDR 05:35 → ANHOB2 12:07
PROVIDERS: Admitting Provider Obstetrics & Gynecology; PCP Nurse Practitioner Family; Visit Provider Obstetrics & Gynecology
PROC: 10D00Z1 Extraction of Products of Conception, Low, Open Approach (ICD-10-PCS; CPT 59514; principal; 2020-06-30 07:00)
DX: O42.92 Full-term premature rupture of membranes, unspecified as to length of time between rupture and onset of labor (principal); O34.211 Maternal care for low transverse scar from previous cesarean delivery; Z37.0 Single live birth; Z3A.38 38 weeks gestation of pregnancy; O99.893 Other specified diseases and conditions complicating puerperium; R31.9 Hematuria, unspecified; O24.429 Gestational diabetes mellitus in childbirth, unspecified control; Z30.2 Encounter for sterilization; O99.344 Other mental disorders complicating childbirth; F41.9 Anxiety disorder, unspecified
CPT/HCPCS: 36415; 36430; 51600; 74430; 85025; 85027; 86592; 86850; 86900; 86901; 86923; 88302; 88307; A9270; J0690; J2405; J2590; J3010; J3480; J7050; J7120; P9016; Q9967

== ENCOUNTER 2022-01-30 13:51 | Outpatient (CLI) | payer OTHER, SELFPAY ==
[2022-01-30 15:25] LABS: Hematocrit 35.7 % (37.0-47.0); Hemoglobin 11.8 g/dL (12.0-15.0)
== END 2022-01-30 13:52 | disposition home or self-care (01) ==
PROVIDERS: Anesthesiology; PCP Nurse Practitioner Family; Visit Provider Obstetrics & Gynecology
DX: Z01.812 Encounter for preprocedural laboratory examination (principal); N92.1 Excessive and frequent menstruation with irregular cycle
CPT/HCPCS: 36415; 85014; 85018; 86850; 86900; 86901

== ENCOUNTER 2022-02-05 14:34 | Inpatient (IN) | payer OTHER, SELFPAY ==
--- NOTE | 2022-01-28 16:33 | SUR.PREOP ---
Report to the Outpatient Waiting Room, entrance under the green pavilion located off [facility], at time 0630 on date 02/05/22. OR Time: 0830. - You and your visitor will be asked a series of questions to screen for COVID 19 for your protection. - Only one visitor is allowed at this time. - The patient visitor is requested to leave or wait in car when not with patient. - A mask is required within the hospital. Patients may have clear liquids (water, carbonated beverages, clear teas, apple juice) until 3 hours prior to surgery with a maximum of 20 ounces. - NO CLEAR LIQUIDS AFTER 0530 - No food from midnight until time of surgery - Infants may have breast milk until 4 hours before surgery, infant formula 6 hours prior to surgery. - Children will be allowed to drink immediately following surgery. If applicable, please bring a bottle or sippy cup to assist with drinking. Juice, water, soda, and popsicles are readily available. For infants on formula, please bring formula the day of surgery. Pacifiers are allowed. Take the following medications with a SIP of water the morning of surgery: BUPROPION Please no make-up, nail welsh, hairspray, perfume, deodorant, or body powder the day of surgery. No jewelry (including any body piercings) or valuables the day of surgery, leave them at home. Please take a shower or bath the night before, or the morning of, surgery with an antibacterial soap. Wear comfortable, loose fitting clothing. Children are encouraged to wear pajamas. - Jewelry must be removed prior to entering the operating room. Rings and piercings that are not removed may be cut off. - The hospital will not accept responsibility for valuables. - Please leave all valuables, including medications, at home the day of surgery. If you are going home after surgery, a licensed city driver must drive you home. - NO public transportation without another adult. - We recommend that an adult stay with you for 24 hours following discharge. - We also recommend that you do not drive, make important decision, drink alcoholic beverages, or take any drugs that were not prescribed by your health care provider for at least 24 hours after your discharge time. For Pediatric surgeries, we recommend two adults accompany the child home (only one inside the building at this time). Follow any additional instructions given to you from your surgeon. If you or anyone in your household have experienced Covid symptoms in the past week, please notify your surgeon or the nurse liaison at the phone number below for possible testing. Telephone instructions given to TAMMIE MARTINEZ and asked if any additional questions and then verbalized understanding. Patient advised to call surgeon office or pre surgery nurse liaison [phone] if any additional questions.
[2022-01-28 16:43] VITALS: BMI 25.7
--- NOTE | 2022-02-04 17:50 | PM.IMHP ---
H&P: HPI History of Present Illness Date/Time: 02/04/22 17:50 36-year-old female 3 para 3003 presents for definitive management of heavy irregular vaginal bleeding. She states that cycles are coming at 2-3 week intervals with 5-7 days heavy bleeding with clots cramping. This is to the point of interfering with her activities of daily living and causing her issues at work or she is not able to perform her job due to the heavy bleeding and cramping. She has been having these problems for number years and has presented for definitive treatment today. She has had 3 previous deliveries the last of which significant bladder adhesions were noted, and due to this patient is aware that this may be a supracervical procedure. Also ultimately will need BSO due to her history of breast cancer but at this point does not desire their removal. Chief Complaint: Menometrorrhagia Review of Systems Review of Systems: All systems reviewed & are unremarkable except as noted in HPI and below PMFSH Family History Family History Son Asthma Mother Asthma Father Heart disease Social History Social History Smoking status: Never smoker Alcohol intake: current Substance use: never Gender identity (if verbalized by the patient): Female Spiritual care concerns: No Meds Home Medications and Allergies Home Medications Medication Instructions Recorded Confirmed Type vit no.95-ferrous 1 tablet PO DAILY 05/21/20 01/28/22 History fumarate 28 mg-folic acid 800 mcg tablet () venlafaxine 75 mg capsule,extended 75 mg PO HS 05/21/20 01/28/22 History release 24 hr (Effexor XR) bupropion HCl 150 mg 24 hr tablet, 1 tablet PO DAILY 01/28/22 01/28/22 History extended release dulaglutide 0.75 mg/0.5 mL 1 ea subcut WEEKLY 01/28/22 01/28/22 History subcutaneous pen injector (Trulicity) ergocalciferol (vitamin D2) 1,250 1 cap PO WEEKLY 01/28/22 01/28/22 History mcg (50,000 unit) capsule ferrous sulfate 325 mg (65 mg 1 tablet PO DAILY 01/28/22 01/28/22 History iron) tablet,delayed release Allergies Allergy/AdvReac Type Severity Reaction Status Date / Time No Known Allergies Allergy Verified 06/14/20 14:34 Exam Const: General: cooperative, healthy appearing and comfortable Resp: Effort & Inspection: normal respiratory effort Auscultation: clear to auscultation bilaterally Cardio: Rate: regular rate Rhythm: regular rhythm GI: Inspection: incision ( Prior incisions noted) Auscultation: normal bowel sounds : External Female Exam: normal external appearance Speculum Exam - Vagina: normal appearance of the vagina Speculum Exam - Cervix: normal appearance of the cervix Bimanual exam- vagina & uterus: enlarged ( 8-10 week size), fixed and Uterine tenderness Bimanual Exam- Adnexa, other: tender ( bilaterally left greater than right) Assessment and Plan Assessment and plan (1) Menometrorrhagia: Code(s): N92.1 - Excessive and frequent menstruation with irregular cycle Status: Acute Assessment and Plan: plan is to proceed with abdominal hysterectomy with bilateral salpingectomy. (2) Previous section: Code(s): Z98.891 - History of uterine scar from previous surgery Status: Acute Assessment and Plan: Patient is aware due to her multiple procedures in the past that supracervical hysterectomy may need to be performed. (3) Breast cancer: Code(s): C50.919 - Malignant neoplasm of unspecified site of unspecified female breast Status: Acute Assessment and Plan: Oophorectomy is offered at this time but declined per patient.
[2022-02-05] VITALS (15 sets, daily range): BP systolic 102–115; BP diastolic 55–72; PULSE 84–114; RESP 10–20; TEMP 36.1–37.3; O2SAT 94–100
--- NOTE | 2022-02-05 07:52 | WPDANESEPPF ---
Anes - Initial Pre Proc Eval Procedure: Operation Date: 02/05/22 11:00 Proposed Procedures p Total Abdominal Hysterectomy with Bilateral Salpingectomy - Mark Brito MD Date/Time: 02/05/22 07:52 Surgeon: Mark Brito MD Pre Op Diagnosis: Menometrorrhagia Patient Data Age: 36 Gender: F Height: 1.57 m Weight: 63.7 kg Allergies Allergy/AdvReac Type Severity Reaction Status Date / Time No Known Allergies Allergy Verified 02/05/22 09:08 Home Medications Medication Instructions Recorded Confirmed Type vit no.95-ferrous 1 tablet PO DAILY 05/21/20 02/05/22 History fumarate 28 mg-folic acid 800 mcg tablet () venlafaxine 75 mg capsule,extended 75 mg PO HS 05/21/20 02/05/22 History release 24 hr (Effexor XR) bupropion HCl 150 mg 24 hr tablet, 1 tablet PO DAILY 01/28/22 02/05/22 History extended release dulaglutide 0.75 mg/0.5 mL 1 ea subcut WEEKLY 01/28/22 01/28/22 History subcutaneous pen injector (Trulicity) ergocalciferol (vitamin D2) 1,250 1 cap PO WEEKLY 01/28/22 01/28/22 History mcg (50,000 unit) capsule ferrous sulfate 325 mg (65 mg 1 tablet PO DAILY 01/28/22 02/05/22 History iron) tablet,delayed release ibuprofen 200 mg tablet 800 mg PO Q6H PRN PAIN 02/05/22 02/05/22 History Patient hx anesthesia problems: none Family hx anesthesia problems: none Results Review: All pre-operative results and documents have been reviewed as part of the pre-operative evaluation. [facility] Past Medical History Medical History (Updated 02/05/22 @ 07:53 by Elmo Blackwell MD) Anxiety Breast cancer Depression Endometriosis Leiomyoma Menometrorrhagia Family History Family History Son Asthma Mother Asthma Father Heart disease Social History Social History Smoking status: Never smoker Alcohol intake: current Substance use: never Gender identity (if verbalized by the patient): Female Spiritual care concerns: No Anes - Eval Final PreProcedure Day of Procedure 02/05/22 07:52 Patient weight: normal Heart: regular rate and rhythm Lungs: clear to auscultation and normal air movement Airway: Mallampati scale class II Neurological: alert and oriented Last oral intake: >/= 8 hours ASA classification: III Emergent: no Anesthetic plan: proceed Anesthesia type and monitoring: general ETT Results Review: All pre-operative results and documents have been reviewed as part of the pre-operative evaluation. Informed Consent: The patient's anesthetic plan and its attendant risks and benefits were discussed with the patient/family/POA. Questions were solicited and answers provided to the satisfaction of the patient/family/POA.
[2022-02-05] MEDS: ACETAMINOPHEN 500 MG TABLET 1000 MG PO (10:22)
--- NOTE | 2022-02-05 10:28 | WPDHPUPDATE1 ---
History and Physical Update Update Date/Time: 02/05/22 10:28 History and Physical has been reviewed, including an updated exam of the patient. There are NO changes in the patient's condition. Risks, benefits, and alternatives have been discussed and questions answered. Patient agrees to proceed with procedure.
[2022-02-05] MEDS: LACTATED RINGERS 1,000 ML 30 ML IV CONT ×2 (10:30→12:59)
[2022-02-05] MEDS: KETOROLAC 15 MG/ML VIAL (*BKC) IV PUSH (10:31)
[2022-02-05] MEDS: ceFAZolin 2 GM/D5W 50 ML 2 GM/50 ML BAG IVPB (11:02)
--- NOTE | 2022-02-05 11:11 | SUR.PREOP ---
0915-PT STATES ON 01/29, PULLED A MUSCLE IN HER BACK AND WAS STARTED ON FLEXERIL AND IBUPROFEN PRN.
[2022-02-05] MEDS: METHYLENE BLUE 0.5% INJ 10 ML AMPULE 20 ML IRRIGATION (12:06)
--- NOTE | 2022-02-05 12:44 | P.OP_ITS ---
Procedure Note - Detailed Date of Procedure 02/05/22 Pre-op Diagnosis Menometrorrhagia Post-op Diagnosis Same Procedure Performed 1. Supracervical abdominal hysterectomy with bilateral salpingectomy 2. Extensive adhesiolysis Surgeon Mark Brito MD Anesthesia General Indications Menometrorrhagia Findings 1. Moderately enlarged uterus 2. Dense bladder adhesions to the anterior portion of cervix. Description of Procedure Patient prepped and draped in the usual manner for this procedure. Pfannenstiel incision was made which was carried down to the fascia. Fascial incision was extended bilaterally the skin incision. Peritoneum was able to be entered the this was difficult due to the uterus being densely adhered to the fascial and anterior abdominal wall. Once the peritoneum was entered the uterus was delineated by taking down adhesions of omentum and bowel though the bowel was minimally involved. Most of the adhesions were uterine to the anterior abdominal wall as mentioned above. The tubal segments were then removed without difficulty and sent to pathology separately. Round ligaments were then clamped cut tied and held for identification later in the case. Utero-ovarian ligaments were [place] clamped cut and time and the ovaries were allowed to drop out of the operative field. Uterine vessels then skeletonized and clamped cut and tied. Prior to the uterine vessels being dealt with the bladder was back filled with [id number] of colored fluid with no spillage noted. However there was 1 thin area noted on the dome of the bladder. Due to the dense adhesions of bladder to the anterior portion of the cervix decision was made as had been discussed with the patient previous to the surgery of a supracervical hysterectomy. The cervical stump was rendered hemostatic using a running interlocking suture with good approximation and hemostasis noted. The thin area on the bladder was then oversewn using 2 0 chromic in a running manner. This defect was approximately 3cm in length. All subfascial tissue was noted be hemostatic but due to the dense adhesions and raw areas Indy was placed empirically throughout. Fascia was then approximated using 0 Vicryl from the l eft angle to midline and the right angle to midline with good approximation hemostasis noted. Subcutaneous tissue was approximated 0 plain suture of 4-0 Monocryl was used to approximate the skin edges. At this point the procedure was considered terminated the patient was sent cover room in stable condition. Estimated Blood Loss 100 Urine Output 150 Drains Yes (Ibanez catheter) Packing No Pathology Yes Complications No immediate complications Condition Stable Disposition PACU [facility] Billing Surgery - Charge Forward: Surgery Billing
[2022-02-05] MEDS: fentaNYL CITRATE INJ (*CRX) 100 MCG/2 ML VIAL 25 MCG IV PUSH ×8 (13:04→13:51)
--- NOTE | 2022-02-05 14:00 | SUR.PHASEI ---
1400- Call to OB Second to give report to floor RN. Per secretary to board of commissioners RN will call back to receive report when available.
--- NOTE | 2022-02-05 14:18 | SUR.PHASEI ---
1418- Call to Dr. Manrique patient requesting additional medication for abdominal cramping rated at 6/10 on numeric scale after 200MCG of fentanyl administered. Orders obtained for Valium 2.5MG IVP once. Orders placed and will administer per IV.
[2022-02-05] MEDS: diazePAM INJ (*CRX) 10 MG/2 ML SYRINGE 2.5 MG IV PUSH (14:21)
[2022-02-05] MEDS: ONDANSETRON INJ 4 MG/2 ML VIAL IV PUSH ×2 (14:25→20:26)
[2022-02-05] MEDS: KETOROLAC 30 MG/ML VIAL (*BKC) IV PUSH (15:30)
[2022-02-05] MEDS: HYDROcodone/acetaminophen (*CRX) 10-325 MG TABLET 1 TAB PO (15:42)
[2022-02-05] MEDS: DEXTROSE 5%/LACTATED RINGERS 1,000 ML 125 ML IV CONT ×2 (15:54→23:00)
[2022-02-05] MEDS: MORPHINE SULFATE (*CRX) 4 MG/ML INJ IV PUSH (17:59)
[2022-02-05] MEDS: HYDROcodone/acetaminophen (*CRX) 5-325 MG TABLET 1 TAB PO (21:02)
[2022-02-05] MEDS: VENLAFAXINE HCL XR 75 MG CAP.ER.24H PO (21:02)
[2022-02-05] MEDS: SIMETHICONE 80 MG TAB.CHEW PO (23:00)
[2022-02-06] MEDS: HYDROcodone/acetaminophen (*CRX) 5-325 MG TABLET 1 TAB PO ×5 (04:46→22:30)
[2022-02-06] MEDS: IBUPROFEN 600 MG TABLET PO ×3 (04:46→17:58)
[2022-02-06 04:50] VITALS: BP 91/46; PULSE 88; RESP 18; TEMP 36.6; O2SAT 98
[2022-02-06 05:11] LABS: Basophils Percent Auto 0.3 % (0.2-1.2); Eosinophils Absolute Auto 0.1 K/mm3 (0-0.3); Eosinophils Percent Auto 0.8 % (0-4.4); Hematocrit 30.5 % (37.0-47.0); Hemoglobin 9.6 g/dL (12.0-15.0); Immature Granulocyte Absolute 0.02 K/mm3 (0.00-0.031); Immature Granulocyte Percent A 0.2 % (0-0.5); Lymphocytes Absolute Auto 1.42 K/mm3 (0.9-3.2); Lymphocytes Percent Auto 14.7 % (18.3-44.2); Mean Corpuscular HGB Conc 31.5 g/dl (32-36); Mean Corpuscular Hemoglobin 27.3 pg (26-34); Mean Corpuscular Volume 86.6 fl (80-100); Monocytes Absolute Auto 0.9 K/mm3 (0.1-0.6); Monocytes Percent Auto 8.9 % (2.6-8.5); Neutrophils Absolute Auto 7.3 K/mm3 (1.3-6.7); Neutrophils Percent Auto 75.1 % (45.5-73.1); Platelet Count Result 199 k/mm3 (150-375); Red Blood Count 3.52 M/mm3 (4.2-5.4); White Blood Count 9.7 K/mm3 (4.5-10.0)
--- NOTE | 2022-02-06 07:00 | PC.NURSE ---
PT introductions made and plan of care discussed per post op urogynaecologist surgery , pain management, daily care activities. PT sole recipient of such instructions and no barriers to learning identified at this time. PT received instructions per one to one discussion and demonstrations this shift. PT verbalized understanding of such care
--- NOTE | 2022-02-06 09:20 | P.PNAN_ITS ---
Anes - Prog Note Post-Op Date/Time: 02/06/22 09:20 Cardiovascular status: normal Respiratory status: normal Airway patency: baseline Mental status: baseline Post-Op hydration status: normal Vital Signs: Last Vital Signs Temp 98 F 02/06/22 04:50 Pulse 88 02/06/22 04:50 Resp 18 02/06/22 04:50 BP 91/46 L 02/06/22 04:50 Pulse Ox 98 02/06/22 04:50 O2 Del Method Room Air 02/06/22 04:50 O2 Flow Rate 8 02/05/22 13:15 Pain Score (VAS): 0/10 I/O: Intake & Output 02/05/22 02/06/22 02/06/22 23:59 07:59 15:59 Intake Total 1610 300 Output Total 300 2500 Balance 1310 -2200 Laboratory Tests 02/06/22 04:49 02/06/22 04:49 WBC 9.7 RBC 3.52 L Hgb 9.6 L Hct 30.5 L MCV 86.6 MCH 27.3 MCHC 31.5 L RDW 14.0 Plt Count 199 MPV 10.0 Immature Gran % (Auto) 0.2 Neut % (Auto) 75.1 H Lymph % (Auto) 14.7 L [place] % (Auto) 8.9 H Eos % (Auto) 0.8 Baso % (Auto) 0.3 Lymph # (Auto) 1.42 [place] # (Auto) 0.9 H Eos # (Auto) 0.1 Baso # (Auto) 0.0 Abs Immat Gran (auto) 0.02 Absolute Neuts (auto) 7.3 H Absolute Nucleated RBC 0.0 Nucleated RBC % 0.0 Post-procedural complaints: none Patient Feedback: Patient satisfied with anesthetic care.
[2022-02-06] MEDS: SIMETHICONE 80 MG TAB.CHEW PO ×4 (09:26→22:31)
[2022-02-06] MEDS: buPROPion HCL XL (24 HR) 150 MG TABCR PO (09:26)
[2022-02-06] MEDS: DOCUSATE SODIUM 100 MG CAPSULE PO ×2 (09:26→17:59)
[2022-02-06 09:30] VITALS: BP 97/49; PULSE 89; RESP 16; TEMP 36.7; O2SAT 99
[2022-02-06 18:30] VITALS: BP 98/62; PULSE 92; RESP 18; TEMP 36.8
[2022-02-06] MEDS: VENLAFAXINE HCL XR 75 MG CAP.ER.24H PO (22:26)
[2022-02-07] MEDS: SIMETHICONE 80 MG TAB.CHEW PO (04:00)
[2022-02-07] MEDS: HYDROcodone/acetaminophen (*CRX) 5-325 MG TABLET 1 TAB PO ×3 (04:00→13:07)
[2022-02-07] MEDS: IBUPROFEN 600 MG TABLET PO ×2 (04:00→13:07)
[2022-02-07 07:00] VITALS: BP 104/55; PULSE 95; RESP 14; TEMP 36.9; O2SAT 99
[2022-02-07] MEDS: buPROPion HCL XL (24 HR) 150 MG TABCR PO (09:18)
[2022-02-07] MEDS: ERGOCALCIFEROL 50,000 UNIT CAPSULE 50000 UNITS PO (09:40)
--- NOTE | 2022-02-13 08:38 | PM.OBDSVD ---
DS: Admitting Diagnosis Discharge Date 02/07/22 Admitting Diagnosis Menometrorrhagia DS: Discharge Diagnosis Discharge Diagnosis Plan Discharge home with follow-up in the office in 2 weeks. OB - DS: Summary Hospital Course Hospital Course: 36-year-old female admitted for hysterectomy. Supracervical hysterectomy without difficulty. Second postop day was ambulating voiding tolerated diet and ready to be discharged and will be followed up in 2 weeks. OB Procedures : Other OB Procedures Intrapartum: Other OB Procedures: : Other Peripartum Data Procedures: Procedures Operation Date: 02/05/22 11:00 Actual Procedure Side Surgeon p Total Abdominal Supracervical Hysterectomy with Bilateral Salpingectomy Bilateral Mark Brito MD Time Spent with Patient Time attestation: Total time spent providing and/or coordinating discharge services: DS: Data Data Completed and Pending Completed studies during hospitalization: Pending at discharge 02/05/22 12:22 Surgical [PTH] Routine Discharge Plan Discharge Consulting providers: Elmo Blackwell ; Fabian Cardoso Discharging Clinician: Mark Brito Anticipated Discharge Date/Time: 02/07/22 11:00 Patient Disposition: Home, Self-Care Activity: december shower Diet: regular Patient Instructions: Hysterectomy (DC) Stand Alone Forms: General Discharge Instructions Follow-up/Referrals: Mark Brito MD [Physician] - Discharge Medications: New hydrocodone-acetaminophen 5-325 mg Tablet 1 tablet PO Q3H PRN (Reason: Pain Rated 5 Or Less) Qty: 30 0RF Continued venlafaxine [Effexor XR] 75 mg Capsule,Extended Release 24hr 75 mg PO HS PNV cmb#95-ferrous fumarate-FA [] 28 mg iron- 800 mcg Tablet 1 tablet PO DAILY ergocalciferol (vitamin D2) 1,250 mcg (50,000 unit) capsule 1 cap PO WEEKLY ferrous sulfate 325 mg (65 mg iron) tablet,delayed release (DR/EC) 1 tablet PO DAILY bupropion HCl 150 mg tablet extended release 24 hr 1 tablet PO DAILY Trulicity 0.75 mg/0.5 mL pen injector 1 ea SUBCUT WEEKLY ibuprofen 200 mg Tablet 800 mg PO Q6H PRN (Reason: PAIN) cyclobenzaprine 10 mg Tablet 10 mg PO HS PRN (Reason: Back Pain) Date of admission: 02/06/22 16:06 Primary Care Provider: Narinder,Jessica Willard Admitting Provider: Mark Brito Attending physician on admission: Mark Brito Condition: Stable
== END 2022-02-07 13:10 | disposition home or self-care (01) | DRG 513 ==
LOC: ANHOB2 02-06 11:03
PROVIDERS: Admitting Provider Obstetrics & Gynecology; PCP Nurse Practitioner Family; Visit Provider Obstetrics & Gynecology
PROC: 0UT94ZZ Resection of Uterus, Percutaneous Endoscopic Approach (ICD-10-PCS; CPT 58180; principal; 2022-02-05 11:00)
DX: N92.1 Excessive and frequent menstruation with irregular cycle (principal); N73.6 Female pelvic peritoneal adhesions (postinfective); N70.11 Chronic salpingitis; N83.8 Other noninflammatory disorders of ovary, fallopian tube and broad ligament; F32.A Depression, unspecified; F41.9 Anxiety disorder, unspecified; Z85.3 Personal history of malignant neoplasm of breast; Z98.891 History of uterine scar from previous surgery
CPT/HCPCS: 58180; 36415; 85025; 88307; 99199; A9270; G0378; J0690; J1100; J1170; J1885; J2250; J2270; J2405; J2704; J2710; J3010; J3360; J7030; J7120; J7121; Q9968

== ENCOUNTER 2023-09-05 18:09 | Emergency (ER) | payer OTHER, SELFPAY ==
--- NOTE | ~2023-09-05 | XR_ITS ---
Left foot Technique: AP, oblique, and lateral views were obtained. Clinical History: Pain Findings: No acute fracture or dislocation is seen. Osseous alignment is anatomic. Joint spaces are p reserved without erosive or degenerative change. Soft tissues are unremarkable. Impression: Unremarkable left foot radiographs. Reviewed, dictated and finalized at location . [facility] Impression: Unremarkable left foot radiographs.
[2023-09-05 18:20] VITALS: BP 134/73; PULSE 85; RESP 16; TEMP 37.1; O2SAT 100
--- NOTE | 2023-09-05 18:28 | ED.FALL ---
HPI - Fall General Chief Complaint: Fall Stated Complaint: Fall Time Seen by Provider: 09/05/23 18:39 Source: patient and RN notes reviewed Mode of arrival: ambulatory Limitations: no limitations History of Present Illness HPI Narrative: 37-year-old female presents concern for left foot pain. Reports she fell yesterday and hit her foot on a metal gate and has had some pain bruising her foot, pain worsening with weight-bearing. complaint: fall Related Data Home Medications Medication Instructions Recorded Confirmed venlafaxine 75 mg capsule,extended 75 mg PO HS 05/21/20 09/05/23 release 24 hr (Effexor XR) bupropion HCl 150 mg 24 hr tablet, 1 tablet PO DAILY 01/28/22 09/05/23 extended release dulaglutide 0.75 mg/0.5 mL 1 ea subcut WEEKLY 01/28/22 09/05/23 subcutaneous pen injector (Trulicity) ergocalciferol (vitamin D2) 1,250 1 cap PO WEEKLY 01/28/22 09/05/23 mcg (50,000 unit) capsule metformin 500 mg tablet 500 mg PO DAILY 08/10/23 09/05/23 Allergies Allergy/AdvReac Type Severity Reaction Status Date / Time No Known Allergies Allergy Verified 09/05/23 18:10 Review of Systems Review of Systems: CONSTITUTIONAL: Denies malaise, chills, sweats, or fever. SKIN: Denies rash or itching, open skin, laceration, abrasion, redness, warmth, swelling. 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 Depression Endometriosis Exposure to sexually transmitted disease (STD) HSV (herpes simplex virus) infection Leiomyoma Menometrorrhagia Miscarriage (~2006) Vaginal discharge Surgical History Surgical History (Updated 08/10/23 @ 15:49 by VANDANA Ohara) H/O left breast biopsy (02/27/22) benign History of breast biopsy (12/03/15) Left breast US guide core bx - fibroadenoma lobular carcinoma insitu - atypical lobular hyperplasia - Andree Carlisle MD History of breast reconstruction History of cholecystectomy (~2012) History of dilation and curettage 2006 hscope suction d&c--miscarriage History of hand surgery 1999 right hand cyst removal History of hysterectomy, supracervical (02/05/22) supra cx hysterectomy History of ovarian cystectomy 11/11/07 lscope rt & lt ovarian cystectomy Hx of LASIK (~2004) Previous section 11/13/08 primary c/s--IUGR 08/13/17 rpt c/s 06/30/20 rpt c/s S/P mastectomy, bilateral Family History Family History Son Asthma Mother Asthma Father Heart disease Coronary arteriosclerosis Grandparent Breast cancer maternal grandmother Diabetes mellitus maternal grandmother paternal grandmother Congestive heart failure paternal grandmother Social History Social History (Updated 06/01/23 @ 17:13 by Brenda Franco [facility]) Smoking status: Never smoker Alcohol intake: never Substance use: never Substance use type: does not use Lack of Transportation: No Lack of Food: Never True Current Housing: I Have Housing Concerned About Future Housing: No Difficulty Paying Gas/Electric Bills: No Difficulty Paying for Meds: No Currently Unemployed: No Education: Trade/Vocational Certificate Difficulty w/ Childcare or Family Care: No Living arrangements: other Additional living arrangements comments: Occupation/Education: occupation Additional occupation/education comments: nurse Gender identity (if verbalized by the patient): Female Sexual Orientation (if Verbalized by the Patient): Straight or Heterosexual Spiritual care concerns: No Comments At time of signature, agree with nursing past medical, surgical, social and family history. There is no
== END 2023-09-05 18:55 | disposition home or self-care (01) ==
PROVIDERS: Emergency Provider Nurse Practitioner; PCP Nurse Practitioner Family
DX: S90.32XA Contusion of left foot, initial encounter (principal); W19.XXXA Unspecified fall, initial encounter; F41.9 Anxiety disorder, unspecified; F32.A Depression, unspecified; N80.9 Endometriosis, unspecified; Z85.3 Personal history of malignant neoplasm of breast; Z90.13 Acquired absence of bilateral breasts and nipples
CPT/HCPCS: 73630; 99213; G0463